=== PATIENT | male | born 1980 | race Caucasian/White ===

== ENCOUNTER 2023-05-01 17:24 | Emergency (ER) | payer OTHER, SELFPAY ==
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
--- NOTE | ~2023-05-01 | XR_ITS ---
EXAMINATION: XR FEMUR, LEFT CLINICAL INFORMATION: Pain COMPARISON: None available. TECHNIQUE: AP and lateral views of the left femur were obtained. FINDINGS: The bones and soft tissues are normal. No fracture. No osseous lesions. XR/XR femur LT 2V IMPRESSION: No significant abnormality identified.
[2023-05-01 17:31] VITALS: PULSE 100; RESP 20; TEMP 36.8; O2SAT 100; BMI 38.3
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
[2023-05-01 20:22] VITALS: BP 126/87; PULSE 86; RESP 16; TEMP 37.3; O2SAT 99
== END 2023-05-01 21:19 | disposition home or self-care (01) ==
PROVIDERS: Emergency Provider Emergency Medicine
DX: S70.12XA Contusion of left thigh, initial encounter (principal); M25.512 Pain in left shoulder; M79.605 Pain in left leg; V43.52XA Car driver injured in collision with other type car in traffic accident, initial encounter; Y93.9 Activity, unspecified; Y92.410 Unspecified street and highway as the place of occurrence of the external cause; Y99.9 Unspecified external cause status
CPT/HCPCS: 73030; 73552; 99282; 99283